=== PATIENT | male | born 2000 | race Two or more races ===

== ENCOUNTER 2022-01-19 22:06 | Emergency (ER) | payer SELFPAY ==
[~2022-01-19] VITALS: Ht 170.2 cm; Wt 68.0 kg
[2022-01-19 22:06] VITALS: BP 129/85
[2022-01-19] MEDS ORDERED: SODIUM CHLORIDE 0.9% 1,000 ML IV ONE (23:00)
[2022-01-19 23:40] LABS: Hematocrit 42.9 % (41.0-53.0); Hemoglobin 15.1 g/dL (13.5-17.5); Mean Corpuscular Hemoglobin 31.8 pg (28.0-32.0); Mean Corpuscular Hgb Conc. 35.3 g/dL (32.0-36.0); Mean Corpuscular Volume 90.2 fL (80.0-100.0); Red Blood Cells 4.76 10^6/uL (4.5-5.90); White Blood Cell 5.8 10^3/uL (4.4-10.8)
[2022-01-20 00:02] LABS: Albumin 4.4 g/dL (3.4-5.0); Anion Gap 10 (5-15); Calcium 9.6 mg/dL (8.5-10.1); Carbon Dioxide 27 mmol/L (21-32); Chloride 104 mmol/L (98-107); Potassium 3.4 mmol/L (3.5-5.1); Sodium 141 mmol/L (136-145)
[2022-01-20 00:03] LABS: Basophils % (manual) 0 (0.0-2.0); Blast Cells 0; Eosinophils % (manual) 0 (0-7); Metamyelocytes % 0; Myelocytes % 0; Promyelocytes % 0; Reactive Lymphocytes 0
[2022-01-20 00:05] LABS: Alanine Aminotransferase 25 U/L (16-61); Aspartate Aminotransferase 42 U/L (15-37); BUN/Creatinine Ratio 6.3; Blood Alcohol < 3.0 mg/dL (0-5); Blood Urea Nitrogen 6 mg/dL (7-18); GFR African American 127 mL/min; GFR Non-African American 105 mL/min; Glucose 88 mg/dL (74-106)
[2022-01-20 00:09] LABS: Alkaline Phosphatase 72 U/L (45-117); Bilirubin, Total 0.7 mg/dL (0.2-1.0); Total Protein 7.4 g/dL (6.4-8.2)
[2022-01-20 00:45] LABS: Lymphocytes % (manual) 9 (10.0-50.0); Monocytes % (manual) 15 (0-12)
[2022-01-20 00:46] LABS: Band Neutrophils % (manual) 10
[2022-01-21] MEDS ORDERED: LEVE500T32 PO (13:54)
== END 2022-01-20 01:16 | disposition left against medical advice (07) ==
LOC: EDBD 22:06 → ER 22:06
DX: R56.9 Unspecified convulsions (principal); Z53.29 Procedure and treatment not carried out because of patient's decision for other reasons
CPT/HCPCS: 36415; 70450; 71045; 80053; 80320; 85007; 85027

== ENCOUNTER 2022-01-20 03:37 | Observation (INO) | payer OTHER ==
[~2022-01-20] VITALS: Ht 170.2 cm; Wt 46.7 kg
[~2022-01-20 03:37] MED LIST: LORazepam 2MG/ML-1ML VIAL ONE
[2022-01-20] MEDS ORDERED: LORazepam 2MG/ML-1ML VIAL IV ONE (04:00)
[2022-01-20] MEDS ORDERED: SODIUM CHLORIDE 0.9% 1,000 ML IV ONE (04:15)
[2022-01-20] MEDS ORDERED: levETIRAcetam 500 MG/5ML INJ IV ONE (04:19)
[2022-01-20] MEDS ORDERED: MORPHINE SULFATE INJ 2 MG/ml SYRG IV PRN ×2 (06:30)
[2022-01-20] MEDS ORDERED: ONDANSETRON HCL 4 MG/2 ML VIAL IV PRN (06:30)
[2022-01-20] MEDS ORDERED: LORazepam 2MG/ML-1ML VIAL IV PRN (06:30)
[2022-01-20] MEDS ORDERED: NITROGLYCERIN 0.4 MG SL TAB SL PRN (06:30)
[2022-01-20 07:05] LABS: BUN/Creatinine Ratio 4.7; Calcium 9.7 mg/dL (8.5-10.1); Potassium 3.2 mmol/L (3.5-5.1)
[2022-01-20 07:15] LABS: Hematocrit 38.9 % (41.0-53.0); Hemoglobin 13.2 g/dL (13.5-17.5); Mean Corpuscular Hemoglobin 30.8 pg (28.0-32.0); Mean Corpuscular Volume 90.6 fL (80.0-100.0); Red Cell Distribution Width 13.2 % (11.8-14.3); White Blood Cell 5.3 10^3/uL (4.4-10.8)
[2022-01-20 07:26] LABS: Band Neutrophils % (manual) 0; Basophils % (manual) 0 (0.0-2.0); Blast Cells 0; Eosinophils % (manual) 0 (0-7); Metamyelocytes % 0; Myelocytes % 0; Promyelocytes % 0; Reactive Lymphocytes 0
[2022-01-20 09:00] LABS: Lymphocytes % (manual) 9 (10.0-50.0); Monocytes % (manual) 11 (0-12)
[2022-01-20] MEDS ORDERED: POTASSIUM CHL 20 Meq TABLET PO ONE (09:30)
[2022-01-20] MEDS: SODIUM CHLORIDE 0.9% 1,000 ML IV SCH ×3 (10:55→23:40)
[2022-01-20] MEDS: POTASSIUM CHL 20MEQ/100ML 100 ML IV SCH (11:55)
[2022-01-20 20:03] LABS: Amphetamine Screen, Urine NEGATIVE (NEGATIVE); Barbiturate Scree,Urine NEGATIVE (NEGATIVE); Benzodiazephine Screen, Urine NEGATIVE (NEGATIVE); Cannabinoid Screen, Urine POSITIVE (NEGATIVE); Cocaine Screen, Urine NEGATIVE (NEGATIVE); Opiate Scree,Urine NEGATIVE (NEGATIVE); Phencyclidine Screen, Urine NEGATIVE (NEGATIVE)
[2022-01-20 22:55] LABS: Urine Specific Gravity 1.016 (1.001-1.035)
[2022-01-20 22:56] LABS: Urine Bacteria FEW /hpf (None Seen); Urine Blood Negative /uL (Negative)
[2022-01-20 22:57] LABS: Urine Mucus FEW (None Seen)
[2022-01-20 23:15] VITALS: BP 104/63
[2022-01-21 05:00] VITALS: BP 109/67
[2022-01-21 05:27] LABS: Hematocrit 38.5 % (41.0-53.0); Hemoglobin 13.3 g/dL (13.5-17.5); Mean Corpuscular Hemoglobin 31.3 pg (28.0-32.0); Mean Corpuscular Hgb Conc. 34.5 g/dL (32.0-36.0); Mean Corpuscular Volume 90.8 fL (80.0-100.0); Red Blood Cells 4.24 10^6/uL (4.5-5.90); Red Cell Distribution Width 13.1 % (11.8-14.3); White Blood Cell 4.1 10^3/uL (4.4-10.8)
[2022-01-21 05:46] LABS: Albumin 3.2 g/dL (3.4-5.0); Calcium 8.1 mg/dL (8.5-10.1); Potassium 3.2 mmol/L (3.5-5.1)
[2022-01-21 05:48] LABS: BUN/Creatinine Ratio 5.5
[2022-01-21 05:49] LABS: Bilirubin, Total 0.6 mg/dL (0.2-1.0); Total Protein 5.8 g/dL (6.4-8.2)
[2022-01-21 05:54] LABS: Basophils % (manual) 0 (0.0-2.0); Blast Cells 0; Eosinophils % (manual) 0 (0-7); Metamyelocytes % 0; Myelocytes % 0; Promyelocytes % 0; Reactive Lymphocytes 0
[2022-01-21 07:34] LABS: Band Neutrophils % (manual) 38; Lymphocytes % (manual) 16 (10.0-50.0); Monocytes % (manual) 16 (0-12)
[2022-01-21 08:56] VITALS: BP 99/60
[2022-01-21] MEDS ORDERED: POTASSIUM CHL 20 Meq TABLET PO ONE (09:30)
[2022-01-21] MEDS: SODIUM CHLORIDE 0.9% 1,000 ML IV SCH (12:30)
[2022-01-21 12:54] VITALS: BP 103/57
[2022-01-21] MEDS ORDERED: LEVE500T32 PO (13:54)
[2022-01-21 17:00] VITALS: BP 120/69
== END 2022-01-21 17:35 | disposition home or self-care (01) ==
LOC: ER 03:44 → TELE 06:23 → TELE-EAST 23:19
PROVIDERS: ADMIT Hospitalist; ATTEND Hospitalist
DX: U07.1 COVID-19 (principal); R56.9 Unspecified convulsions; S09.90XA Unspecified injury of head, initial encounter; G93.40 Encephalopathy, unspecified; F32.A Depression, unspecified; R20.2 Paresthesia of skin; F12.10 Cannabis abuse, uncomplicated; X58.XXXA Exposure to other specified factors, initial encounter; Y93.89 Activity, other specified; Y92.89 Other specified places as the place of occurrence of the external cause
CPT/HCPCS: 36415; 70551; 80048; 80053; 80307; 81001; 85007; 85027; 87426; 93005; 95819; 96361; 96365; 96366; 96375; 99285; G0378; J1953; J2060; J7030; J7060